=== PATIENT | female | born 1975 | race Caucasian/White ===

== ENCOUNTER → 2024-12-02 16:17 | Outpatient (REF) | payer OTHER, SELFPAY | LOC: WDC 16:17 | PROVIDERS: ATTENDING PHYSICIAN Family Medicine | DX: Z12.31 Encounter for screening mammogram for malignant neoplasm of breast (principal) | CPT/HCPCS: 77063; 77067 ==

== ENCOUNTER → 2025-10-21 17:04 | Outpatient (REF) | payer OTHER, SELFPAY | LOC: RAD 17:04 | PROVIDERS: ATTENDING PHYSICIAN Nurse Practitioner; FAMILY PHYSICIAN Family Medicine | DX: R31.21 Asymptomatic microscopic hematuria (principal) | CPT/HCPCS: 76770 ==